=== PATIENT | male | born 1960 | race Two or more races ===

== ENCOUNTER 2022-12-09 06:39 | Day surgery (SDC) | payer OTHER ==
[2022-12-04 14:54] LABS: Basophils # (auto) 0 10 ^3/uL (0-0.2); Basophils % (auto) 0.4 % (0.0-2.0); Eosinophils # (auto) 0.1 10 ^3/uL (0-0.8); Eosinophils % (auto) 0.8 % (0.0-7.0); Hematocrit 49.7 % (41.0-53.0); Hemoglobin 16.9 g/dL (13.5-17.5); Lymphocytes # (auto) 1.8 10 ^3/uL (0.4-5.4); Lymphocytes % (auto) 24.8 % (10.0-50.0); Mean Corpuscular Hemoglobin 31.2 pg (28.0-32.0); Mean Corpuscular Hgb Conc. 34.1 g/dL (32.0-36.0); Mean Corpuscular Volume 91.6 fL (80.0-100.0); Monocytes # (auto) 0.6 10 ^3/uL (0-1.3); Monocytes % (auto) 8.6 % (0.0-12.0); Neutrophils # (auto) 4.7 10 ^3/uL (1.6-8.6); Neutrophils % (auto) 65.4 % (37.0-80.0); Nucleated Red Blood Cells % 0.2 %; Red Blood Cells 5.42 10^6/uL (4.5-5.90); Red Cell Distribution Width 13.9 % (11.8-14.3); White Blood Cell 7.2 10^3/uL (4.4-10.8)
[2022-12-04 15:07] LABS: INR 0.97 (0.9-1.15); Partial Thromboplastin Time 29.9 sec (24.6-33.4)
[2022-12-04 15:12] LABS: Urine Bacteria NONE SEEN /hpf (None Seen); Urine Blood Negative /uL (Negative); Urine Mucus FEW (None Seen); Urine Specific Gravity 1.021 (1.001-1.035); Urine WBC <1 /hpf (0 - 3)
[2022-12-04 16:53] LABS: Albumin 3.5 g/dL (3.4-5.0); Calcium 8.8 mg/dL (8.5-10.1); Potassium 4.1 mmol/L (3.5-5.1)
[2022-12-04 16:58] LABS: BUN/Creatinine Ratio 15.3; Bilirubin, Total 0.6 mg/dL (0.2-1.0); Total Protein 7.2 g/dL (6.4-8.2)
[~2022-12-09] VITALS: Ht 185.4 cm; Wt 88.5 kg
[~2022-12-09 06:39] MED LIST: DULO20CA PO; GABA-339 PO
[2022-12-09] MEDS ORDERED: ROCURONIUM 10MG/ML 10ML VIAL IV ONE (06:46)
[2022-12-09] MEDS ORDERED: SUCCINYLCHOLINE CHLORIDE 20 MG/ML 10ML VIAL IV ONE (06:46)
[2022-12-09] MEDS ORDERED: EPINEPHrine HCL 1 MG/1 ML AMP ONE ×3 (06:50→09:44)
[2022-12-09] MEDS ORDERED: fentaNYL CITRATE 100 MCG/2 ML VL ONE (06:52)
[2022-12-09] MEDS ORDERED: MIDAZOLAM HCL 2MG/2ML 2ml VIAL (1mg/ml) ONE (06:52)
[2022-12-09] MEDS ORDERED: DexAMETHasone SOD PHOS 10MG/1ML VIAL INJ ONE (06:52)
[2022-12-09] MEDS ORDERED: HYDROmorphone HCL 2 MG/ML VL/or syr ONE ×2 (06:52→11:08)
[2022-12-09] MEDS ORDERED: PROPOFOL 10 MG/ML 20 ML IV ONE (06:53)
[2022-12-09] MEDS ORDERED: SODIUM CHLORIDE LOCK 10 ML ONE (06:53)
[2022-12-09] MEDS ORDERED: GLYCOPYRROLATE 0.2 MG/ML 1ML VIAL ONE (06:53)
[2022-12-09] MEDS ORDERED: NEOSTIGMINE 1 MG/ML INJ (10mg/10ML VIAL) ONE (06:53)
[2022-12-09] MEDS ORDERED: ONDANSETRON HCL 4 MG/2 ML VIAL ONE (06:53)
[2022-12-09] MEDS ORDERED: ceFAZolin 1GM/50ML 100 ML IV ONE (06:58)
[2022-12-09] MEDS ORDERED: HYDROmorphone HCL 2 MG/ML VL/or syr IV PRN ×2 (07:15)
[2022-12-09] MEDS ORDERED: METOCLOPRAMIDE HCL 5MG/ml INJ 2ml VIAL IV PRN (07:15)
[2022-12-09] MEDS ORDERED: HYDR1TAB97 PO ×5 (07:30→11:33)
[2022-12-09] MEDS ORDERED: CEPH-510 PO ×3 (07:31→11:35)
[2022-12-09] MEDS ORDERED: ASPI-498 OR ×3 (07:31→11:35)
[2022-12-09] MEDS: BUPIVACAINE HCL 50 ML ONE ×2 (09:33→09:59)
[2022-12-09 11:52] VITALS: BP 151/71
== END 2022-12-09 12:00 | disposition home or self-care (01) ==
LOC: SUR 06:39
PROVIDERS: ATTEND Orthopaedic Surgery Sports Medicine
DX: M75.122 Complete rotator cuff tear or rupture of left shoulder, not specified as traumatic (principal); M67.814 Other specified disorders of tendon, left shoulder; M89.8X1 Other specified disorders of bone, shoulder; M94.212 Chondromalacia, left shoulder; M75.52 Bursitis of left shoulder; M65.9 Synovitis and tenosynovitis, unspecified; K76.0 Fatty (change of) liver, not elsewhere classified; F32.A Depression, unspecified; G62.9 Polyneuropathy, unspecified; Z79.82 Long term (current) use of aspirin; Z79.891 Long term (current) use of opiate analgesic; Z98.890 Other specified postprocedural states; Z20.822 Contact with and (suspected) exposure to COVID-19
CPT/HCPCS: 29826; 29827; 36415; 80053; 81001; 85025; 85610; 85730; C1713; J0171; J0330; J0690; J1100; J1170; J2250; J2405; J2704; J3010; J3490; U0003